=== PATIENT | male | born 1985 | race African-American/Black ===

== ENCOUNTER 2020-05-29 21:40 | Emergency (ER) | payer OTHER ==
[~2020-05-29] VITALS: Ht 170.2 cm; Wt 112.5 kg
--- NOTE | 2020-05-30 20:46 | EKG ---
[facility] [address] [place], [place] [address] Signed Normal sinus rhythm with sinus arrhythmia Normal ECG No previous ECGs available Confirmed by SANTIAGO US DO ([id number]) on 05/30/2020 8:45:56 PM Electronically Signed By: SANTIAGO US DO 05/30/20 2046 PATIENT NAME: JEFF PEREZ JR Electrocardiogram DATE OF : 89 PHYSICIAN: SANTIAGO US DO REPORT #: [id number] REPORT IS CONFIDENTIAL AND NOT TO BE RELEASED WITHOUT AUTHORIZATION
== END 2020-05-29 22:39 | disposition home or self-care (01) ==
LOC: ED 21:40 → EDSEX 21:42 → ED 21:42
DX: R07.89 Other chest pain (principal); F17.200 Nicotine dependence, unspecified, uncomplicated
CPT/HCPCS: 71045; 80053; 83735; 84484; 85025; 93005; 93010; 99285-25

== ENCOUNTER 2022-07-27 22:09 | Emergency (ER) | payer OTHER ==
[~2022-07-27] VITALS: Ht 172.7 cm; Wt 101.1 kg
--- OUTSIDE RECORDS SUMMARY | 2022-07-27 22:17 | XMS ---
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 - Patient with suicidal and/or homicidal ideations eloped. - Patient eloped with IV in place. Details: PATIENT LWBS CRITERIA MET - [facility] - 2 Visits in 30 Days - Group Notification CARE PROVIDERS [facility] Current PHONE: Unknown Johnny has no Care Guidelines for this patient. EShyam VISIT COUNT (12 MO.) 2 [facility] TOTAL 2 NOTE: Visits indicate total known visits. ED/UCC VISIT TRACKING (12 MO.) 07/27/2022 22:11 [facility] TYPE: Emergency COMPLAINT: - SORE THROAT 06/28/2022 13:45 [facility] TYPE: Emergency COMPLAINT: - LUMP ON NECK INPATIENT VISIT TRACKING (12 MO.) No inpatient visits to display in this time frame [email or web address]
[2022-07-27] MEDS ORDERED: FLUOXETINE HCL40 MG PO (22:26)
== END 2022-07-27 23:12 | disposition home or self-care (01) ==
LOC: ED 22:09
DX: J02.9 Acute pharyngitis, unspecified (principal); I10 Essential (primary) hypertension; F17.200 Nicotine dependence, unspecified, uncomplicated; Z79.899 Other long term (current) drug therapy
CPT/HCPCS: 87880; 99283